=== PATIENT | female | born 1955 | race Caucasian/White ===

== ENCOUNTER 2021-01-26 18:56 | Inpatient (IN) | payer MEDICARE ==
[~2021-01-26] VITALS: Ht 162.6 cm; Wt 99.4 kg
[~2021-01-26 18:56] MED LIST: BANOPHEN25 MG PO; DIPATR PO; METO25ER PO; ONDA4 PO; ONDA4ODT MM
[2021-01-26 19:30] LABS: BASOPHILS ABSOLUTE AUTO 0.08 K/mm3 (0.00-0.23); BASOPHILS PERCENT AUTO 1 % (0-2); EOSINOPHILS ABSOLUTE AUTO 0.17 K/mm3 (0.00-0.68); EOSINOPHILS PERCENT AUTO 2 % (0-6); Hematocrit 41.3 % (33.0-51.0); IMMATURE GRAN ABSOLUTE AUTO 0.04 K/mm3 (0.00-0.10); IMMATURE GRAN PERCENT AUTO 0 % (0-1); LYMPHOCYTES ABSOLUTE AUTO 1.98 K/mm3 (0.84-5.20); LYMPHOCYTES PERCENT AUTO 21 % (21-46); MONOCYTES ABSOLUTE AUTO 0.87 K/mm3 (0.16-1.47); MONOCYTES PERCENT AUTO 9 % (4-13); Mean Corpuscular HGB 29.1 pg (26.0-34.0); Mean Corpuscular HGB Conc 33.9 g/dL (31.5-36.5); Mean Corpuscular Volume 86 fL (80-100); Mean Platelet Volume 11.8 fL (9.1-12.4); NEUTROPHILS ABSOLUTE AUTO 6.21 K/mm3 (1.96-9.15); NEUTROPHILS PERCENT AUTO 66 % (41-73); Platelet Count 271 K/mm3 (150-400); RDW Coefficient Variation 12.6 % (11.7-14.2); RDW Standard Deviation 39.5 fL (35.1-46.3); Red Blood Cell Count 4.81 M/mm3 (3.80-5.20); White Blood Cell Count 9.35 K/mm3 (4.00-11.30)
[2021-01-26 19:52] LABS: Alanine Aminotransfer (ALT/SGP 22 U/L (12-78); Albumin, Blood 3.7 g/dL (3.4-5.0); Albumin/Globulin Ratio 0.9 (0.8-1.8); Alk Phos 120 U/L (50-136); Anion Gap 3 mmol/L (6-16); Aspartate Aminotrans (AST/SGOT 19 U/L (12-37); Bilirubin, Total 0.3 mg/dL (0.1-1.0); Blood Urea Nitrogen 11 mg/dL (8-24); Bun/Creatinine Ratio 18.8 (12.0-20.0); CO2, Blood 29 mmol/L (21-32); Calcium, Blood 9.8 mg/dL (8.5-10.1); Chloride, Blood 104 mmol/L (98-108); Creatinine, Blood 0.58 mg/dL (0.40-1.00); Globulin, Blood 4.1 g/dL (2.2-4.0); Glomerular Filtration Rate >60 (60-); Glucose, Blood 383 mg/dL (70-99); Potassium, Blood 3.6 mmol/L (3.5-5.5); Sodium, Blood 136 mmol/L (136-145); Total Protein, Blood 7.8 g/dL (6.4-8.2); Troponin I <0.015 ng/mL (0.000-0.040)
[2021-01-26 20:20] LABS: International Normalized Ratio 1.01; Prothrombin Time Results 10.9 Sec (9.7-11.5)
[2021-01-26] MEDS ORDERED: CETI5 PO (21:15)
[2021-01-26 22:34] LABS: CHOL/HDL RATIO 5.8; Cholesterol 203 mg/dL (50-200); HDL Cholesterol 35 mg/dL (>39); LDL/HDL RATIO 2.7; Low Density Lipoprotein Chol 95 mg/dL (0-110); Triglycerides 363 mg/dL (30-160); Very Low Density Lipoprot Chol 72 mg/dL (6-32)
[2021-01-26 23:04] LABS: Source, Urine Clean Catch
[2021-01-26 23:08] LABS: Appearance, Urine Hazy (Clear); Bilirubin, Urine Neg (Neg); Blood, Urine 3+ (Neg); Color, Urine Yellow (P-Yellow); Glucose Qualitative, Urine 4+ (Neg); Ketones, Urine 1+ (Neg); Leukocyte Esterase, Urine 1+ (Neg); Nitrite, Urine Neg (Neg); Protein, Urine 3+ (Neg); Urobilinogen, Urine NORM (Normal)
[2021-01-26 23:15] LABS: Red Blood Cells, Urine 0-2 /hpf (0-2); White Blood Cells, Urine 25-50 /hpf (0-5)
[2021-01-26 23:16] LABS: Bacteria Many /hpf; Hyaline Casts 0-2 /lpf (0-2); Squamous Epithelial Cells Few /hpf (Few)
[2021-01-27 03:18] LABS: BASOPHILS ABSOLUTE AUTO 0.06 K/mm3 (0.00-0.23); BASOPHILS PERCENT AUTO 1 % (0-2); EOSINOPHILS ABSOLUTE AUTO 0.02 K/mm3 (0.00-0.68); EOSINOPHILS PERCENT AUTO 0 % (0-6); Hematocrit 37.9 % (33.0-51.0); Hemoglobin 12.8 g/dL (11.5-16.0); IMMATURE GRAN ABSOLUTE AUTO 0.04 K/mm3 (0.00-0.10); IMMATURE GRAN PERCENT AUTO 0 % (0-1); LYMPHOCYTES ABSOLUTE AUTO 1.23 K/mm3 (0.84-5.20); LYMPHOCYTES PERCENT AUTO 11 % (21-46); MONOCYTES ABSOLUTE AUTO 0.66 K/mm3 (0.16-1.47); MONOCYTES PERCENT AUTO 6 % (4-13); Mean Corpuscular HGB 29.4 pg (26.0-34.0); Mean Corpuscular HGB Conc 33.8 g/dL (31.5-36.5); Mean Corpuscular Volume 87 fL (80-100); Mean Platelet Volume 11.7 fL (9.1-12.4); NEUTROPHILS ABSOLUTE AUTO 8.98 K/mm3 (1.96-9.15); NEUTROPHILS PERCENT AUTO 82 % (41-73); Platelet Count 233 K/mm3 (150-400); RDW Coefficient Variation 12.8 % (11.7-14.2); RDW Standard Deviation 40.1 fL (35.1-46.3); Red Blood Cell Count 4.35 M/mm3 (3.80-5.20); White Blood Cell Count 10.99 K/mm3 (4.00-11.30)
[2021-01-27 03:36] LABS: Anion Gap 3 mmol/L (6-16); Blood Urea Nitrogen 9 mg/dL (8-24); Bun/Creatinine Ratio 16.3 (12.0-20.0); CO2, Blood 28 mmol/L (21-32); Calcium, Blood 8.5 mg/dL (8.5-10.1); Chloride, Blood 105 mmol/L (98-108); Creatinine, Blood 0.55 mg/dL (0.40-1.00); Glomerular Filtration Rate >60 (60-); Glucose, Blood 345 mg/dL (70-99); Potassium, Blood 3.4 mmol/L (3.5-5.5); Sodium, Blood 136 mmol/L (136-145)
--- NOTE | 2021-01-27 06:27 | NUR ---
N.I.H.S.S. ON ADMIT TO ICU, 01/26 @ 23:25: 1A: 0 1B: +1 1C: 0 2: 0 3: 0 4: +2 5A: 0 5B: +1 6A: 0 6B: +1 7: +1 8: +1 9: +1 10: +1 11: 0 TOTAL SCORE: 9
--- NOTE | 2021-01-27 06:32 | NUR ---
SHIFT SUMMARY PATIENT HAS SLEPT WELL THROUGH NIGHT. NEUROLOGICALLY UNCHANGED, HAVE PERFORMED NEURO CHECKS Q2H AND NO CHANGE NOTED. ASSESSMENT IS CHARTED. VSS. WILL CONTINUE TO MONITOR.
--- NOTE | 2021-01-27 08:34 | NUR ---
Provider Visit - Dr. Kevin Brown at bedside. New med orders to be placed by Dr. Brown. Provider states to allow for permissive hypertension, will place orders for PO BP meds.
--- NOTE | 2021-01-27 08:45 | NUR ---
Speech evaluation Pt passed speech evaluation per therapist. ADA diet orderd.
--- NOTE | 2021-01-27 09:00 | NUR ---
Care Assumed 0700 Pt is A/O to being in [place], [place]. States year at 2019 and month as March. Unable to state why she is in the hospital. Slow to respond, flat affect. Right side facial droop, bilateral blood bank manager strength strong and equal. Moves all extrems. Right sided pronator drift. Following directions and able to help with turns. On RA, lung sounds clear/dim. Pt is hypertensive SBP 200's/DBP 90-100's. HR 80's. Dr. Brown aware, allowing for permissive hyopertension. Will treat with PO meds, per emar. NSRParul Miller in place, draning clear/yellow urine. Call light within reach.
--- NOTE | 2021-01-27 09:27 | NUR ---
MRI Call recieved from MRI for possible MRI at 1100. Pt states she is claustrophobic, will let provider know.
--- NOTE | 2021-01-27 09:32 | NUR ---
Carotid Ultrasound Cartoid ultrasound being performed at bedside by tech. Patient calm and cooperative.
--- NOTE | 2021-01-27 10:01 | NUR ---
Provider Call - Dr. Kevin Brown updated in regards to pt being claustrophobic. New order for Valium recieved, to be given 15 mins prior to MRI. Also, updated on patients BP. Dr. Brown would like SBP < or equal to 190, new orders recieved.
--- NOTE | 2021-01-27 10:53 | NUR ---
Vomiting/provider call Pt had episode of vomiting (100 ml of yellow emesis). Denies nausea. Pt was boosted using lift prior to this episode. Pt tolerated using lift well but had episode of emesis afterwards. Dr. Brown called and made aware. Pt continues to be hypertersive as well, provider aware. New orders recieved, see emar.
--- NOTE | 2021-01-27 11:53 | NUR ---
MRI- Pt to MRI at 1110 and returned now. Pt tolerated well. NO n/V. COntinues to be hypertensive. Will call DR. Brown to update.
--- NOTE | 2021-01-27 12:28 | NUR ---
Provider Call/Update Patients SBP 200's, Dr. Brown called and made aware. New orders recieved, see emar. Pt has slurred speech and is slow to respond, more so compared to this morning. Right facial droop present, strong/equal carbonation tester strength bilaterally. Able to follow directions and make needs known but quickly falls asleep. Easily awakens to verbal stimuli. States year as 1991 but is aware of being in [place], [place]. NSR. HR 90's. No N/V.
--- NOTE | 2021-01-27 15:44 | NUR ---
Neuro status change - Provider Call Dr. Brown called and updated on patients neuro status change and hypertension (SBP 200's). Patient states being in [place], [place]. When asked if she can tell the date/year. Patient states, "[place] [birth year]" and when asked if she can state how many child and their names, pt states, " Three, 1991, 457" Pt able to state her name is "Don." Unable to state president, word salad response. Pt continues to have right pronator drift. Strong cable mock up assembler bilaterally and moves all extrems. Affect flat but calm and cooperative. Sat in bed and ate lunch with assistance. Right hand has weakness, using left hand to eat. Pts at bedside since around 1410. Able to assist patient with eating lunch. Remains on RA, SPO2 > 90%. Pt appears flushed, afebrile. New orders recieved from Dr. Brown for hypertension management, see emar.
--- NOTE | 2021-01-27 17:45 | NUR ---
Provider Call- HTN Called Dr. Brown and updated on pt status. New orders recieved.
--- NOTE | 2021-01-27 19:11 | NUR ---
Shift Summary Pt on nicardipine 2.5 mg/hr, SBP 206-192, HR 80's. NSR. [place] but earlier stating being in [place], [place]. Unable to state why she is in the hospital. Follow directions. Slow to respond with slurred speech. Has a word salad frequently when asked childrens name or who the president is. Pt appears flushed and left eye has redness, was not present at the start of shift. Right facial droop continues to be present. Strong acute dialysis nurse bilaterally, moves all extrems. Remains on RA. Denies pain or SOB. Denies nausea, no new vomiting except the one episode earlier during shift. Miller in place, draining to gravity, 550 bety cloudy output. has left home and states his daughter will be visiting tomorrow. took patients cell phone home. Will report to oncoming shift.
--- NOTE | 2021-01-27 19:54 | NUR ---
01/27 @ 19:10 PT. ALERT, ORIENTED TO PERSON ONLY. ORIGINALLY THOUGHT SHE WAS IN HER HOME IN THE YEAR 1977, UNSURE OF WHY THIS NURSE WAS HELPING HER WITH HER DINNER. OBSERVED PT EATING DINNER, DID VERY WELL WITH HER LEFT HAND, WAS ABLE TO SPOON HERSELF FRUIT AND DRINK WATER WITH HER RIGHT ARM. RIGHT SIDE IS STILL LESS COORDINATED, BUT TO THIS NURSE STRENGTH FELT THE SAME IN SQUEEZING AND PUSHING WITH HANDS, FLEXION AND EXTENSION WITH RIGHT FOOT. PERRLA. OVERALL LANGUAGE SEEMS BETTER COMPARED TO ADMISSION YESTERDAY, CONFUSION STILL PRESENT, HOWEVER ARTICULATION IS IMPROVED AND SENTENCE STRUCTURE MORE CONSISTENT AND FLUID. MANAGING BP WITH NICARDIPINE DRIP, CURRENTLY AT 2.5 MG/HR. WILL CONTINUE TO MONITOR.
[2021-01-28 03:39] LABS: BASOPHILS ABSOLUTE AUTO 0.05 K/mm3 (0.00-0.23); BASOPHILS PERCENT AUTO 0 % (0-2); EOSINOPHILS ABSOLUTE AUTO 0.14 K/mm3 (0.00-0.68); EOSINOPHILS PERCENT AUTO 1 % (0-6); Hematocrit 38.8 % (33.0-51.0); Hemoglobin 12.8 g/dL (11.5-16.0); IMMATURE GRAN ABSOLUTE AUTO 0.05 K/mm3 (0.00-0.10); IMMATURE GRAN PERCENT AUTO 0 % (0-1); LYMPHOCYTES PERCENT AUTO 17 % (21-46); MONOCYTES ABSOLUTE AUTO 1.24 K/mm3 (0.16-1.47); MONOCYTES PERCENT AUTO 10 % (4-13); Mean Corpuscular HGB 29.3 pg (26.0-34.0); Mean Corpuscular Volume 89 fL (80-100); Mean Platelet Volume 11.9 fL (9.1-12.4); NEUTROPHILS ABSOLUTE AUTO 8.58 K/mm3 (1.96-9.15); NEUTROPHILS PERCENT AUTO 71 % (41-73); Platelet Count 255 K/mm3 (150-400); RDW Coefficient Variation 12.7 % (11.7-14.2); RDW Standard Deviation 41.7 fL (35.1-46.3); Red Blood Cell Count 4.37 M/mm3 (3.80-5.20); White Blood Cell Count 12.16 K/mm3 (4.00-11.30)
[2021-01-28 03:57] LABS: Anion Gap 3 mmol/L (6-16); Blood Urea Nitrogen 10 mg/dL (8-24); Bun/Creatinine Ratio 14.5 (12.0-20.0); CO2, Blood 30 mmol/L (21-32); Calcium, Blood 8.8 mg/dL (8.5-10.1); Chloride, Blood 104 mmol/L (98-108); Creatinine, Blood 0.69 mg/dL (0.40-1.00); Glomerular Filtration Rate >60 (60-); Glucose, Blood 250 mg/dL (70-99); Potassium, Blood 3.3 mmol/L (3.5-5.5); Sodium, Blood 137 mmol/L (136-145)
--- NOTE | 2021-01-28 04:03 | NUR ---
01/28 @ 02:[address] JIMÉNEZ ABOUT DECREASING BLOOD PRESSURES, SBP ~ 140-150s. NO CHANGE IN NEURO STATUS AT THIS TIME. PER DR JIMÉNEZ NO NEW ORDERS. WILL CONTINUE TO MONITOR.
--- NOTE | 2021-01-28 05:19 | NUR ---
SHIFT SUMMARY PATIENT HAS SLEPT WELL TONIGHT. NEURO STATUS IS UNCHANGED FROM EARLIER NOTE. ASSESSMENT IS CHARTED. VSS. WILL CONTINUE TO MONITOR.
--- NOTE | 2021-01-28 07:53 | NUR ---
Care Assumed 0700 Pt sleeping/easily awakens. Pt states being in hospital, year as 2020, slow to respond, slurred speech. Clinical Quality Assurance Specialist strength equal bilaterally. moves all extrems. Pronator drift present on right arm. Right states yes to wanting breakfast. Will assist. Pt continues to appear flushed. Right side facial droop no longer present. Miller in place, dark bety cloudy urine, (100 mls currently). On RA, SPO2 > 92%. BP 197/96, will treat with PO meds per emar. NSR. KCL 20 meq infusing via right AC IV. Cath care and morning care completed.
--- NOTE | 2021-01-28 08:55 | NUR ---
Provider VIsit Dr. Brown in to see patient. Updated on patient status. Pt has right side weakness. unable to state location or event. States "yes" to most questions or incomprehensible speech. Pt unable to state if she takes medications at home or state hx of DM/HTN. Dr. Brown would like pallative care consulted. Also would like SBP between 160-180.
--- NOTE | 2021-01-28 09:02 | NUR ---
Eating breakfast Pt sitting up 90 degrees, eating breakfast with minial assistance. Tolerating well. States, "I keep dropping all the chicken" pt eating eggs currently. Using both right and left hand to sweet pickled fruit maker eggs by herself. Drinks water with left hand, right hand is less coordinated. Continues to be confused. SBP 190'S. WIll treat per emar.
--- NOTE | 2021-01-28 12:19 | NUR ---
Update Pt sitting up in beg (90 degrees) eating lunch. Used left and right hand to eat with spoon. Weakness on right side. Pt states all of her childrens names and states, "lived in [facility]". Slow to respond and at times response is a word salad. On RA. BP 156/74 AND HR 80's. Miller with bety cloudy urine (200 mls). Pt drinking water occasionally.
--- NOTE | 2021-01-28 16:15 | NUR ---
Update - Pallative care visit/daughter visiting Daughter at bedside and pallative care in to see patient. Daughter understands the siutation but has a lot on her plate so will require assistance with care after discharge. Pt does not take medication as home per daughter due to her no longer having insurance. "mOm cannot afford her medications so she stopped taking them." Asked about pt applying for OHP, daughter states, "SHe was rejected last time due to too much incomes." Currently trying to reapply for it again. Pt speaking to daughter with only yes/no or one word answers, laughing occasionally. On RA. hYpertensive SBP 191, will treat per emar.
--- NOTE | 2021-01-28 17:12 | NUR ---
Spoke with Dr Brown and Bedside RN prior to Pt visit. Pt admitted for CVA. Pt's daughter is currently at bedside. Daughter is most appropriate person for advanced care planning. Pt's spouse has difficulty with processing and understanding information. Pt currently has no insurance and will ask renal social worker to assist with this. Pt resting in bed upon arrival. Pt appears to be experiencing expressive aphasia. Daughter Eda at bedside. Engaged on therapeutic conversation with Pt and daughter regarding importance of planning for the future. Discussed the potential of needing SNF and the potential of needing assistance with care once home pending rehab. Daughter Eda reports her use to be a BEHAVIORAL SCIENTIST and can assist. Eda reports plan procedure for a tumor and pending findings possible cancer treatment. Continued gentle education on planning for future and answered questions. Eda reports plan to visit Pt tomorrow as well. Palliative Care will remain available for supportive and therapeutic visits.
--- NOTE | 2021-01-28 19:41 | NUR ---
Shift Summary - PCU status Pt continues to be confused. Right side deficit. Able to follow commands but unable to state location. Neuro status remains the same. Hypertensive at times treated per emar. Miller in place, draning to gravity, dark bety cloudy urine. Pt sitting in bed watching T.V. or sleeping majority of the day. Nicardipine drip DC'd. VSS. on RA. Will report to oncoming shift.
[2021-01-29 03:46] LABS: BASOPHILS ABSOLUTE AUTO 0.06 K/mm3 (0.00-0.23); BASOPHILS PERCENT AUTO 1 % (0-2); EOSINOPHILS ABSOLUTE AUTO 0.16 K/mm3 (0.00-0.68); EOSINOPHILS PERCENT AUTO 1 % (0-6); Hematocrit 36.5 % (33.0-51.0); Hemoglobin 12.4 g/dL (11.5-16.0); IMMATURE GRAN ABSOLUTE AUTO 0.07 K/mm3 (0.00-0.10); IMMATURE GRAN PERCENT AUTO 1 % (0-1); LYMPHOCYTES ABSOLUTE AUTO 1.69 K/mm3 (0.84-5.20); LYMPHOCYTES PERCENT AUTO 14 % (21-46); MONOCYTES ABSOLUTE AUTO 1.36 K/mm3 (0.16-1.47); MONOCYTES PERCENT AUTO 11 % (4-13); Mean Corpuscular HGB 29.6 pg (26.0-34.0); Mean Corpuscular Volume 87 fL (80-100); Mean Platelet Volume 11.8 fL (9.1-12.4); NEUTROPHILS ABSOLUTE AUTO 8.74 K/mm3 (1.96-9.15); NEUTROPHILS PERCENT AUTO 72 % (41-73); Platelet Count 230 K/mm3 (150-400); RDW Coefficient Variation 12.7 % (11.7-14.2); RDW Standard Deviation 40.1 fL (35.1-46.3); Red Blood Cell Count 4.19 M/mm3 (3.80-5.20); White Blood Cell Count 12.08 K/mm3 (4.00-11.30)
[2021-01-29 04:12] LABS: Anion Gap 4 mmol/L (6-16); Blood Urea Nitrogen 15 mg/dL (8-24); CO2, Blood 28 mmol/L (21-32); Calcium, Blood 9.1 mg/dL (8.5-10.1); Chloride, Blood 104 mmol/L (98-108); Creatinine, Blood 0.63 mg/dL (0.40-1.00); Glomerular Filtration Rate >60 (60-); Glucose, Blood 270 mg/dL (70-99); Potassium, Blood 3.5 mmol/L (3.5-5.5); Sodium, Blood 136 mmol/L (136-145)
--- NOTE | 2021-01-29 05:12 | NUR ---
UNLOADER OPERATOR SUMMARY PT HAS MAINTAINED O2 SATS >92% ON RM AIR. PT IS STILL AXO X 2-3. PT CAN ANSWER YES OR NO WHEN ASKED QUESTIONS BUT SHE DOES NOT ATTEMPT TO INITIATE CONVERSATION AND HAS JUMBLED WORD SALAD TYPE SPEECH WHEN SHE ATTEMPTS TO USE FULL SENTANCES. PT GIVEN PAIN MEDICATION ONCE THIS SHIFT FOR BACK PAIN. PT'S SBP WAS IN THE 190'S AT START PF SHIFT AND SHE WAS GIVEN PRN PO HYDRALAZINE X2 HOWEVER AT 0300 HR SBP WAS >200 SO PROVIDER WAS CONTACTED AND A ONE TIME DOSE OF 10MG IV HYDRALAZINE WAS GIVEN BRINGING THE PT'S SBP BACK DOWN INTO 190'S. PT ABLE TO SWALLOW PILLS AND WATER W/O S/S OF ASPIRATION. TELE- NSR 80-90'S. PT DENIES ANY CP OR HEADACHE THIS SHIFT. WCTM
--- NOTE | 2021-01-29 18:13 | NUR ---
TRANSFER OF CARE REPORT GIVEN TO BRUCE CHAVIRA ON PCU. PT TRANSFERRED TO PCU 16 VIA BED. BELONGINGS GATHERED AND TRANSFERED WITH PT. SHIFT SUMMARY PT IS ALERT AND ORIENTED TO PERSON. FOLLOWS COMMANDS, RIGHT SIDED WEAKNESS WITH FACIAL DROOP. PT SPEECH IS CLEAR, HAS DIFFICULTY FINDING CORRECT WORDS. BP REMAINS ELEVATED, DR MADE ADJUSTMENTS TO BP BEDS. PT TOLERATED SITTING IN CHAIR FOR ONLY A COUPLE OF HOURS BEFORE BECOMING TOO TIRED AND REQUIRED 2 PERSON ASSIST BACK TO BED. PT EATING ONLY SMALL PORITIONS OF MEALS, REQUIRES FREQENT ENCOURAGEMENT TO EAT, FEEDING SELF WITH LEFT ARM. OTHER VITALS HAVE REMAINED STABLE. SINUS RHYTHM ON THE MONITOR.
--- NOTE | 2021-01-29 18:22 | NUR ---
RECIEVED REPROT FROM BRUCE HOOK IN ICU. PT TO ROOM VIA BED AT 1756, TRANSFERED WITH OVERHEAD LIFT. AGREE WITH PREVIOUS SOLID WASTE DIVISION SUPERVISOR. NOTED LEFT EYE RED WITH YELLOW, THICK DRAINAGE; PT DENIES IRRITATED OR PAIN TO EYE. BP CONTINUES TO BE ELEVATED. WILL CONTINUE TO MONITOR UNTIL REPROT GIVEN TO ONCOMING RN.
--- NOTE | 2021-01-29 22:44 | NUR ---
CARE ASSUMPTION PT ALERT AND ORIENTATED TO SELF, TIME, AND PLACE. BP 216/113 AND PT RECIEVED MED PER EMAR. SPO2 >90%. TELE SR 90S. PT ABLE TO FOLLOW DIRECTIONS. PT SLOW TO RESPOND, BUT IS ABLE TO COMMUNICATE NEEDS. RIGHT FACIAL DROOP. RIGHT SIDE WEAKNESS.
--- NOTE | 2021-01-30 01:01 | NUR ---
HTN / CALL TO CALL TO MD JIMÉNEZ TO REPORT PT BP STILL ELEVATED DESPITE SCHEDULED PO LOPRESSOR & PRN PO HYDRALAZINE GIVEN PER EMAR. W/ NEW ORDER FOR PRN IV HYDRALAZINE, SEE ORDER.
[2021-01-30 03:20] LABS: BASOPHILS ABSOLUTE AUTO 0.05 K/mm3 (0.00-0.23); BASOPHILS PERCENT AUTO 0 % (0-2); EOSINOPHILS ABSOLUTE AUTO 0.03 K/mm3 (0.00-0.68); EOSINOPHILS PERCENT AUTO 0 % (0-6); Hematocrit 37.8 % (33.0-51.0); Hemoglobin 12.9 g/dL (11.5-16.0); IMMATURE GRAN ABSOLUTE AUTO 0.11 K/mm3 (0.00-0.10); IMMATURE GRAN PERCENT AUTO 1 % (0-1); LYMPHOCYTES ABSOLUTE AUTO 1.42 K/mm3 (0.84-5.20); LYMPHOCYTES PERCENT AUTO 10 % (21-46); MONOCYTES PERCENT AUTO 12 % (4-13); Mean Corpuscular HGB 29.5 pg (26.0-34.0); Mean Corpuscular HGB Conc 34.1 g/dL (31.5-36.5); Mean Corpuscular Volume 86 fL (80-100); Mean Platelet Volume 11.6 fL (9.1-12.4); NEUTROPHILS PERCENT AUTO 77 % (41-73); Platelet Count 237 K/mm3 (150-400); RDW Coefficient Variation 12.6 % (11.7-14.2); RDW Standard Deviation 39.2 fL (35.1-46.3); Red Blood Cell Count 4.38 M/mm3 (3.80-5.20); White Blood Cell Count 14.61 K/mm3 (4.00-11.30)
[2021-01-30 03:36] LABS: Anion Gap 6 mmol/L (6-16); Blood Urea Nitrogen 12 mg/dL (8-24); Bun/Creatinine Ratio 20.8 (12.0-20.0); CO2, Blood 27 mmol/L (21-32); Calcium, Blood 9.3 mg/dL (8.5-10.1); Chloride, Blood 102 mmol/L (98-108); Creatinine, Blood 0.58 mg/dL (0.40-1.00); Glomerular Filtration Rate >60 (60-); Glucose, Blood 266 mg/dL (70-99); Potassium, Blood 3.5 mmol/L (3.5-5.5); Sodium, Blood 135 mmol/L (136-145)
--- NOTE | 2021-01-30 04:38 | NUR ---
SHIFT SUMMARY ALERT. OREINTATED TO PERSON, SELF, AND PLACE. PT HAS RIGHT SIDED WEAKNESS AND FACIAL DROOP. PT ABLE TO FOLLOW DIRECTIONS. PT RESPONDS SLOWLY WHEN COMMUNICATING. SPEECH IS OCCASIONALLY GARBLED. SPO2 >92% ON RA. TELE SR 80S. BP ELEVATED. BP SLIGHTLY DECREASE AFTER PRN IV HYDRALAZINE PER EMAR ORDER. BP BEGAN TO INCREASE AND PRN PO HYDRALAZINE WAS GIVEN PER EMAR ORDER. BP CONTINUES TO BE ELEVATED DESPITE TREATMENT. WILL CONTINUE TO MONITOR AND PROVIDE CARE.
--- NOTE | 2021-01-30 12:29 | NUR ---
AM NOTE PT ALERT TO SELF AND FAMILY. PT DOES NOT RECALL PLACE, OR EVENT. SYSTOLIC BP RANGING FROM 170-200'S, PULSE 90. PT DENIES CHEST PAIN OR PRESSURE. PT DENIES NAUSEA. PT IS CALM AND COOPERATIVE, EXPERIENCING WORD SALAD. PHYSICAL THERAPY IN THIS AM AND PT WAS ABLE TO STAND AT BEDSIDE. PT IMPROVING IN RIGHT SIDED STRENGTH STATED BY RN AND PHYSICAL THERAPY. PT IS NOW RESTING, CALL LIGHT W/IN REACH. WILL CONTINUE TO MONITOR THROUGHOUT SHIFT.
[2021-01-30 16:45] LABS: Source, Urine Catheter
[2021-01-30 16:47] LABS: Appearance, Urine Cloudy (Clear); Bilirubin, Urine Neg (Neg); Blood, Urine 2+ (Neg); Color, Urine Yellow (P-Yellow); Glucose Qualitative, Urine 3+ (Neg); Ketones, Urine 2+ (Neg); Leukocyte Esterase, Urine 2+ (Neg); Nitrite, Urine Pos (Neg); Protein, Urine 3+ (Neg); Urobilinogen, Urine 1+ (Normal)
[2021-01-30 17:04] LABS: Triple Phosphate Crystals Few /hpf
[2021-01-30 17:05] LABS: Bacteria Many /hpf; Squamous Epithelial Cells Few /hpf (Few)
--- NOTE | 2021-01-30 17:39 | NUR ---
PT TRANSFERED FROM PCU 16 TO 330. RECEIVED REPORT FROM ELYSE IN PCU. A/O X3 CONTINUES TO HAVE DIFFICULTY WITH WORD FINDING. FULL CODE, 2 MAX ASSIST. PT HAS RT SIDED WEAKNESS W/ EXPRESSIVE APHASIA, RT FACIAL DROOP. PT HAS BEEN RECEIVING BOTH IV/ORL MEDS FOR HTN. RASH TO GROIN AND UNDER BREASTS, APPLIED FUNGAL POWDER. ST/PT/OT FOLLOWING PT RECOMMENDING SNF. PT TOLERATING ADA DIET, ACHS BLOOD SUGARS COVERAGE PER SLIDING SCALE AND METFORMIN. PT ORIENTED TO ROOM AND CALL LIGHT, FALL PRECAUTIONS IN PLACE PER PROTOCOL.
--- NOTE | 2021-01-30 17:40 | NUR ---
TRANSFER NOTE PT ALERT TO SELF AND FAMILY. PT IS NOT ORIENTED TO EVENT, TIME, PLACE. BP 176/97, HR IN 90'S THROUGHOUT SHIFT. DURING AMBULATION FROM CHAIR TO BED, PT EXPERIENCED GENERALIZED WEAKNESS; PT WAS 2 PERSON MAX ASSIST. LEFT P IV FLUSHED AND CAPPED. FOLY CATHETER REMOVED, BRIEFS PUT ON. PT LEFT EYE STILL RED AND IRRITATED IN APPEARANCE. PT ALSO DEMONSTRATING EXPRESSIVE APHASIA. NO ACUTE CHANGES NOTED. CARE WAS ASSUMED BY THIS STUDENT UNTIL TRANSFER.
--- NOTE | 2021-01-30 18:26 | NUR ---
THIS RN REVIEWED ART PAPPAS STUDENT DOCUMENATION AND IS IN AGREEMENT. PT STREGNTH AND MENTATION IMPROVING T/O SHIFT. ELEVATED BP; MEDICATED PER EMAR, DR SANDERS AWARE. NOTIFIED DR SANDERS, OF LEFT EYE AND REDNESSIN FOLDS; NEW ORDERS ENTERED.
--- NOTE | 2021-01-31 02:13 | NUR ---
PT with hypertension, new lt sided CVA with rt sided deficit continues with asphasia & rt ue rt le weakness. Alert but difficulty with speech. Hypertensive PRN & scheduled rx for hypertension given BPS continue elevated to low 200s systolic & 100s low diastolic prior to med admisistration. Poor oral intake setup & cues required. Blood glucose elevated on semglee insulin with SS insulin AC. Needs assist for toileting bed mobility adls & working with PT OT ST. Skin care to reddened periarea & abd skin folds. Does not use call white or initate conversation. UNable to state name & , Spells 1st name. DC planning for stroke rehab.
--- NOTE | 2021-01-31 06:25 | NUR ---
PT having urinary retention post sweeney cath removal. Unable to void, straight cath x 1 for 580 dark cloudy urine. Xlg yellow pasty BM on bedpan this AM. PT able to drink from straw hold cup of liquid. Speech continues garbled asphasic. BP better this AM.
[2021-01-31 17:59] LABS: Source, Urine Catheter
[2021-01-31 18:12] LABS: Appearance, Urine Clear (Clear); Bilirubin, Urine Neg (Neg); Blood, Urine 2+ (Neg); Color, Urine Yellow (P-Yellow); Glucose Qualitative, Urine 1+ (Neg); Ketones, Urine Neg (Neg); Leukocyte Esterase, Urine 1+ (Neg); Nitrite, Urine Pos (Neg); Protein, Urine 2+ (Neg); Urobilinogen, Urine NORM (Normal)
[2021-01-31 18:26] LABS: Hyaline Casts 0-2 /lpf (0-2)
[2021-01-31 18:27] LABS: Amorphous Light (0-Heavy); Bacteria Many /hpf; Red Blood Cells, Urine 0-2 /hpf (0-2); Squamous Epithelial Cells Few /hpf (Few)
--- NOTE | 2021-02-01 04:03 | NUR ---
SHIFT SUMMARY PT IS LETHARGIC BUT RESPONDS TO VERBAL STIMULI. SPEECH CONTINUES TO BE GARBLED WITH WORD SALAD. R. SIDED WEAKNESS, NO FACIAL DROOP NOTED. VSS, NO ACUTE CHANGES AT THIS TIME. BED IN LOWEST POSITION WITH CALL LIGHT IN REACH. WILL CONTINUE TO MONITOR AND REPORT TO ONCOMING RN.
--- NOTE | 2021-02-01 16:10 | NUR ---
BLADDER TRAINING IN PROCESS.
--- NOTE | 2021-02-02 03:30 | NUR ---
SHIFT SUMMARY RESPONDS TO VERBAL STIMULI. ANSWERS SOME QUESTIONS APPROPRIATELY OTHERS WITH WORD SALAD. COOPERATIVE WITH CARE. ATTEMPTS TO HELP WITH REPOSITIONING. COTSA SECURED AND DRAINING TO GRAIVTY. BLADDER TRAINING CONTINUED FROM DAY SHIFT WITH MODERATE OUTPUT. APPEARED TO REST MUCH OF THE NIGHT. NO ACUTE CHANGES NOTED OVERNIGHT. BED IN LOWEST POSITION; ALARM ON. CALL LIGHT AND BELONGINGS WITHIN REACH. HOWEVER, DOES NOT UTILIZE CALL SYSTEM. CONTINUE WITH CURRENT PLAN OF CARE. REPORT TO ONCOMING RN.
[2021-02-02 05:29] LABS: BASOPHILS ABSOLUTE AUTO 0.08 K/mm3 (0.00-0.23); BASOPHILS PERCENT AUTO 1 % (0-2); EOSINOPHILS ABSOLUTE AUTO 0.24 K/mm3 (0.00-0.68); EOSINOPHILS PERCENT AUTO 2 % (0-6); Hematocrit 36.2 % (33.0-51.0); Hemoglobin 11.8 g/dL (11.5-16.0); IMMATURE GRAN ABSOLUTE AUTO 0.11 K/mm3 (0.00-0.10); IMMATURE GRAN PERCENT AUTO 1 % (0-1); LYMPHOCYTES ABSOLUTE AUTO 2.15 K/mm3 (0.84-5.20); LYMPHOCYTES PERCENT AUTO 19 % (21-46); MONOCYTES ABSOLUTE AUTO 1.13 K/mm3 (0.16-1.47); MONOCYTES PERCENT AUTO 10 % (4-13); Mean Corpuscular HGB 29.4 pg (26.0-34.0); Mean Corpuscular HGB Conc 32.6 g/dL (31.5-36.5); Mean Corpuscular Volume 90 fL (80-100); Mean Platelet Volume 11.7 fL (9.1-12.4); NEUTROPHILS ABSOLUTE AUTO 7.63 K/mm3 (1.96-9.15); NEUTROPHILS PERCENT AUTO 67 % (41-73); Platelet Count 296 K/mm3 (150-400); RDW Coefficient Variation 12.8 % (11.7-14.2); RDW Standard Deviation 42.5 fL (35.1-46.3); Red Blood Cell Count 4.02 M/mm3 (3.80-5.20); White Blood Cell Count 11.34 K/mm3 (4.00-11.30)
[2021-02-02 05:50] LABS: Anion Gap 6 mmol/L (6-16); Blood Urea Nitrogen 33 mg/dL (8-24); Bun/Creatinine Ratio 36.2 (12.0-20.0); CO2, Blood 27 mmol/L (21-32); Calcium, Blood 9.4 mg/dL (8.5-10.1); Chloride, Blood 105 mmol/L (98-108); Creatinine, Blood 0.91 mg/dL (0.40-1.00); Glomerular Filtration Rate >60 (60-); Glucose, Blood 157 mg/dL (70-99); Potassium, Blood 3.4 mmol/L (3.5-5.5); Sodium, Blood 138 mmol/L (136-145)
[2021-02-02] MEDS ORDERED: ASPI81CH PO (16:51)
[2021-02-02] MEDS ORDERED: AMLO5 PO (16:51)
[2021-02-02] MEDS ORDERED: ATOR40TA PO (16:52)
[2021-02-02] MEDS ORDERED: FURO20 PO (16:52)
[2021-02-02] MEDS ORDERED: LISI20 PO (16:53)
[2021-02-02] MEDS ORDERED: HUMULIN R100 UNIT/1 SC (16:53)
[2021-02-02] MEDS ORDERED: INSULANPEN SC (16:53)
[2021-02-02] MEDS ORDERED: METO50ER PO (16:54)
[2021-02-02] MEDS ORDERED: POTA10T PO (16:54)
[2021-02-02] MEDS ORDERED: VISBIOME 112.51 EACH PO (16:55)
[2021-02-02] MEDS ORDERED: SULTRIDS PO (16:55)
--- NOTE | 2021-02-02 17:58 | NUR ---
DISCHARGED HOME WITH DAUGHTER AND , UNTIL INSURANCE AND NURSING HOME CARE FACILITY PLACEMENT CAN BE FINALIZED. ALL QUESTIONS ANSWERED AND DAUGHTER VERBALIZED UNDERSTANDING OF THE DISCHARGE ORDERS AND RECOMMENDATIONS. CASE MANAGEMENT AND NURSING ASSESSMENT ENSURED FAMILY AND PATIENT NEEDS WERE MET FOR SAFE CARE AT HOME. PATIENT WAS ABLE TO VOID POST CATHETER REMOVAL, LATE MORNING, TODAY. ALL PERSONAL BELONGINGS WERE WITH PATIENT AT TIME OF DISCHARGE.
== END 2021-02-02 17:55 | DRG 65 ==
LOC: ER 18:56 → ICUW 18:57 → MEDS 01-27 16:06 → ICUW 01-27 16:06 → PCU 01-29 17:47 → MEDS 01-30 16:57
PROVIDERS: Emergency Medicine; Internal Medicine; Physician Assistant; ADMIT Family Medicine
DX: I63.89 Other cerebral infarction (principal); I16.1 Hypertensive emergency; G81.91 Hemiplegia, unspecified affecting right dominant side; I50.22 Chronic systolic (congestive) heart failure; N39.0 Urinary tract infection, site not specified; K52.1 Toxic gastroenteritis and colitis; R29.810 Facial weakness; T38.3X5A Adverse effect of insulin and oral hypoglycemic [antidiabetic] drugs, initial encounter; E87.6 Hypokalemia; R47.02 Dysphasia; B96.1 Klebsiella pneumoniae [K. pneumoniae] as the cause of diseases classified elsewhere; D72.829 Elevated white blood cell count, unspecified; E78.5 Hyperlipidemia, unspecified; F03.90 Unspecified dementia, unspecified severity, without behavioral disturbance, psychotic disturbance, mood disturbance, and anxiety; I11.0 Hypertensive heart disease with heart failure; J45.909 Unspecified asthma, uncomplicated; E11.65 Type 2 diabetes mellitus with hyperglycemia; Z88.0 Allergy status to penicillin; Z88.1 Allergy status to other antibiotic agents; Z88.5 Allergy status to narcotic agent; Z79.899 Other long term (current) drug therapy; Z90.710 Acquired absence of both cervix and uterus; Z87.891 Personal history of nicotine dependence; X58.XXXA Exposure to other specified factors, initial encounter
CPT/HCPCS: 36415; 51702; 70450; 70551; 71045; 80048; 80053; 80061; 81001; 82947; 83036; 83735; 84145; 84439; 84443; 84484; 85025; 85610; 87040; 87077; 87086; 87186; 92507; 92523; 92610; 93005; 93010; 93306; 93880; 93975; 96372; 96374-59; 96375; 96375-59; 96376; 97110; 97112; 97116; 97162; 97166; 97530; 97535; 99285-25; A9270; G0378; J0360; J1200; J1650; J1815; J2405; J2550; J3010; J3360; J3480; J7030; J7050

== ENCOUNTER 2023-05-21 14:04 | Emergency (ER) | payer MEDICARE ==
[~2023-05-21] VITALS: Ht 165.1 cm; Wt 90.7 kg
[~2023-05-21 14:04] MED LIST changes: +AMLO5 PO; +ASPI81CH PO; +ATOR40TA PO; +CETI5 PO; +FURO20 PO; +HUMULIN R100 UNIT/1 SC; +INSULANPEN SC; +LISI20 PO; +METO50ER PO; +POTA10T PO; +SULTRIDS PO; +VISBIOME 112.51 EACH PO
[2023-05-21 14:45] LABS: BASOPHILS ABSOLUTE AUTO 0.06 K/mm3 (0.00-0.23); BASOPHILS PERCENT AUTO 0 % (0-2); EOSINOPHILS PERCENT AUTO 0 % (0-6); Hematocrit 38.7 % (33.0-51.0); IMMATURE GRAN ABSOLUTE AUTO 0.06 K/mm3 (0.00-0.10); IMMATURE GRAN PERCENT AUTO 0 % (0-1); LYMPHOCYTES ABSOLUTE AUTO 1.14 K/mm3 (0.84-5.20); LYMPHOCYTES PERCENT AUTO 8 % (21-46); MONOCYTES ABSOLUTE AUTO 1.27 K/mm3 (0.16-1.47); MONOCYTES PERCENT AUTO 9 % (4-13); Mean Corpuscular HGB 28.8 pg (26.0-34.0); Mean Corpuscular HGB Conc 33.6 g/dL (31.5-36.5); Mean Corpuscular Volume 86 fL (80-100); Mean Platelet Volume 11.2 fL (9.1-12.4); NEUTROPHILS ABSOLUTE AUTO 12.02 K/mm3 (1.96-9.15); NEUTROPHILS PERCENT AUTO 83 % (41-73); Platelet Count 269 K/mm3 (150-400); RDW Coefficient Variation 13.5 % (11.7-14.2); Red Blood Cell Count 4.51 M/mm3 (3.80-5.20); White Blood Cell Count 14.55 K/mm3 (4.00-11.30)
[2023-05-21 15:15] LABS: Albumin, Blood 3.5 g/dL (3.4-5.0); Albumin/Globulin Ratio 0.8 (0.8-1.8); Bilirubin, Total 1.2 mg/dL (0.1-1.0); Bun/Creatinine Ratio 17.4 (12.0-20.0); Calcium, Blood 10.2 mg/dL (8.5-10.1); Creatinine, Blood 0.86 mg/dL (0.40-1.00); Globulin, Blood 4.4 g/dL (2.2-4.0); Potassium, Blood 3.4 mmol/L (3.5-5.5); Total Protein, Blood 7.9 g/dL (6.4-8.2)
[2023-05-21 18:01] LABS: Source, Urine Clean Catch
[2023-05-21 18:04] LABS: Appearance, Urine Cloudy (Clear); Blood, Urine 2+ (Neg); Color, Urine Amber (P-Yellow); Glucose Qualitative, Urine Neg (Neg); Ketones, Urine 1+ (Neg); Leukocyte Esterase, Urine 3+ (Neg); Nitrite, Urine Pos (Neg); Protein, Urine 3+ (Neg); Specific Gravity, Urine 1.025 (1.003-1.022); Urobilinogen, Urine 1+ (Normal)
[2023-05-21 18:13] LABS: Bilirubin, Urine 1+ (Neg)
[2023-05-21 18:17] LABS: White Blood Cells, Urine 25-50 /hpf (0-5)
[2023-05-21 18:18] LABS: Bacteria Many /hpf; Renal Epithelial Rare /hpf (0-Rare); Squamous Epithelial Cells Mod /hpf (Few); Transitional Epithelial Cells Few /hpf (0-Rare)
[2023-05-21 18:19] LABS: Mucus Light (0-Heavy)
[2023-05-21] MEDS ORDERED: CEPH500 PO (18:33)
[2023-05-21 19:06] VITALS: BP 197/80
== END 2023-05-21 19:07 | disposition home or self-care (01) ==
LOC: ER 14:04
PROVIDERS: Student in an Organized Health Care Education/Training Program
DX: L03.113 Cellulitis of right upper limb (principal); N39.0 Urinary tract infection, site not specified; Z88.1 Allergy status to other antibiotic agents; Z88.0 Allergy status to penicillin; Z88.5 Allergy status to narcotic agent; Z79.82 Long term (current) use of aspirin; Z79.4 Long term (current) use of insulin; Z79.899 Other long term (current) drug therapy; I10 Essential (primary) hypertension; E78.5 Hyperlipidemia, unspecified; J45.909 Unspecified asthma, uncomplicated; E11.9 Type 2 diabetes mellitus without complications; Z86.73 Personal history of transient ischemic attack (TIA), and cerebral infarction without residual deficits
CPT/HCPCS: 70450; 80053; 81001; 85025; 87077; 87086; 87186; 93005; 93010; 96365; 99284-25; J0696; J7030